=== PATIENT | female | born 1960 | race African-American/Black ===

== ENCOUNTER 2017-08-29 17:09 | Emergency (ER) | payer OTHER ==
[~2017-08-29] VITALS: Ht 154.9 cm; Wt 74.8 kg
[2017-08-29 17:19] VITALS: BP 120/81
[2017-08-29] MEDS ORDERED: ASPIR 8181 MG PO (17:22)
[2017-08-29] MEDS ORDERED: NABUMETONE 750750 M1 PO (18:25)
== END 2017-08-29 18:50 | disposition home or self-care (01) ==
LOC: ER 17:09
DX: S83.91XA Sprain of unspecified site of right knee, initial encounter (principal); F17.210 Nicotine dependence, cigarettes, uncomplicated; W18.40XA Slipping, tripping and stumbling without falling, unspecified, initial encounter; Y93.E5 Activity, floor mopping and cleaning; Y92.002 Bathroom of unspecified non-institutional (private) residence as the place of occurrence of the external cause; Y99.8 Other external cause status